=== PATIENT | male | born 1965 | race Caucasian/White ===

== ENCOUNTER 2019-06-02 18:03 | Emergency (ER) | payer BC, MEDICAID, SELFPAY ==
[~2019-06-02] VITALS: Ht 180.3 cm; Wt 69.9 kg
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
[2019-06-02] MEDS ORDERED: CEFAZOLIN PMX 1GM/50ML 50 ML IV ONE (18:30)
[2019-06-02] MEDS ORDERED: DIPH,PERTUSS(ACELL),TET VAC/PF 0.5 ML IM-VACC ONE ×2 (18:30→18:37)
--- NOTE | 2019-06-02 18:33 | NUR ---
[facility]'S DEPT 911 NOTIFIED.
[2019-06-02] MEDS ORDERED: CEFTRIAXONE PMX 1GM/50ML 0 ML ONE (18:37)
[2019-06-02] MEDS ORDERED: CEFAZOLIN PMX 1GM/50ML 50 ML ONE (18:42)
--- NOTE | 2019-06-02 18:49 | NUR ---
AFTER CLEANING HAND THE PALM SURFACE OF THE LEFT HAND HAS NO WOUND NOTED. THERE IS A SMALL WOUND ON THE DORSAL SIDE FOLD FLESHY AREA OF THE THUMB AND ON THE ANTERIOR LATERAL WRIST
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
[2019-06-02] MEDS ORDERED: NEOSPORIN OINT. PKT 1 PACKET ONE (19:16)
[2019-06-02 19:28] VITALS: BP 135/87
[2019-06-02] MEDS ORDERED: ACETAMINOPHEN 500 MG TABLET PO ONE (19:30)
[2019-06-02] MEDS ORDERED: AMOXICILLIN/CLAV 875-125MG TABLET PO ONE (19:30)
--- NOTE | 2019-06-02 20:15 | NUR ---
[facility] CELESTINE DEPT TALKING WITH PT AT THIS TIME
== END 2019-06-02 20:24 | disposition home or self-care (01) ==
LOC: ED 20:05
DX: S50.812A Abrasion of left forearm, initial encounter (principal); F17.200 Nicotine dependence, unspecified, uncomplicated; W34.00XA Accidental discharge from unspecified firearms or gun, initial encounter; Y93.G3 Activity, cooking and baking; Y92.009 Unspecified place in unspecified non-institutional (private) residence as the place of occurrence of the external cause; Y99.8 Other external cause status
CPT/HCPCS: 73090; 73130; 90471; 90715; 96374; 99284; J0690; 96372